=== PATIENT | female | born 2000 | race Caucasian/White ===

== ENCOUNTER → 2019-08-31 | Outpatient (CLI) | payer BC | END | disposition home or self-care (01) | LOC: LABWHC1 13:05 | PROVIDERS: ATTEND Family Medicine | DX: Z11.59 Encounter for screening for other viral diseases (principal) ==

== ENCOUNTER 2020-12-05 16:33 | Emergency (ER) | payer BC ==
[2020-12-05 16:36] VITALS: BP 121/84; PULSE 89; TEMP 98.3
[2020-12-05 16:50] VITALS: RESP 22
--- NOTE | 2020-12-05 17:44 | ED ---
URI HPI - General Chief Complaint: Upper Respiratory Infection Stated Complaint: 16WksPreg/MIRTA/ENT Time Seen by Provider: 12/05/20 17:02 Source: patient Mode of arrival: ambulatory Limitations: no limitations - History of Present Illness Initial Comments: Patient is a 20-year-old female, currently 16 weeks , presenting to the emergency Department with complaints of a cough, sinus congestion and sore throat over the past 3-4 days. She states that her nasal drainage and sputum has changed to a green color over the past 24 hours and she is concerned for possible infection. She did go to urgent care yesterday, they tested her for Covid which was negative. She states it and offer any sort of medication. She does have an inhaler at home that she has been trying, minimal improvement in her symptoms. Patient denies any fevers, no chest pain or shortness of breath, no abdominal pain, no vaginal bleeding. Her AUTO CARRIER DRIVER is Dr. Simon. This pattern as he has been uncomplicated thus far. Patient has no further complaints. Her vital signs are stable upon arrival. - Related Data Home Medications Medication Instructions Recorded Confirmed Methylphenidate HCl [Concerta] 18 mg PO 12/20/13 12/20/13 Previous Rx's Medication Instructions Recorded Azithromycin [Zithromax Z-pack (6 0 mg PO DIRECTED #6 tab 12/05/20 tabs)] Allergies Allergy/AdvReac Type Severity Reaction Status Date / Time amoxicillin Allergy Rash/Hives Verified 12/05/20 16:37 codeine Allergy Unknown Verified 12/05/20 16:37 erythromycin base Allergy Abdominal Verified 12/05/20 16:37 [Erythromycin Base] Pain Penicillins Allergy Rash/Hives Verified 12/05/20 16:37 Review of Systems ROS Statement: Those systems with pertinent positive or pertinent negative responses have been documented in the HPI. ROS Other: All systems not noted in ROS Statement are negative. Past Medical History Past Medical History: Asthma History of Any Multi-Drug Resistant Organisms: None Reported Past Surgical History: Tonsillectomy Past Psychological History: No Psychological Hx Reported Smoking Status: Current every day smoker, Vaper Past Alcohol Use History: None Reported Past Drug Use History: None Reported General Exam - General Exam Comments Initial Comments: GENERAL: Patient is well-developed and well-nourished. Patient is nontoxic and in no acute distress. HEAD: Atraumatic, normocephalic. EYES: Pupils equal round and reactive to light, extraocular movements intact, sclera anicteric, conjunctiva are normal. Eyelids were unremarkable. ENT: TMs normal, nares patent, oropharynx clear without exudates. Moist mucous membranes. NECK: Normal range of motion, supple without lymphadenopathy or JVD. LUNGS: Unlabored respirations. Breath sounds clear to auscultation bilaterally and equal. No wheezes rales or rhonchi. HEART: Regular rate and rhythm without murmurs, rubs or gallops. ABDOMEN: Soft, nontender, normoactive bowel sounds. No guarding, no rebound. No masses appreciated. : Deferred MUSCULOSKELETAL: Normal extremities with adequate strength and normal range of motion, no pitting or edema. No clubbing or cyanosis. NEUROLOGICAL: Patient is alert and oriented x 3. SKIN: Warm, Dry, normal turgor, no rashes or lesions noted. Limitations: no limitations Course Vital Signs 12/05/20 12/05/20 16:33 16:47 Temperature 98.3 F Pulse Rate 89 Respiratory 20 22 Rate Blood Pressure 121/84 O2 Sat by Pulse 97 Oximetry Medical Decision Making - Medical Decision Making Patient is a 20-year-old female, currently 16 weeks , presenting for cough, congestion over the past 3-4 days. Covid test yesterday at urgent care was negative. She's had no fevers, no abdominal pain, no vaginal bleeding. Her AUTO CARRIER DRIVER is Dr. Niels langford, so has been uncomplicated thus far. Her vital signs are completely normal today. Chest x-ray shows no acute process. I discussed with patient this is most likely viral however for symptoms or worsening we can start her on azithromycin which is safe during . I also recommended Robitussin cough for her symptoms. She can continue with her i nhaler as well. She can follow up with her AUTO CARRIER DRIVER. She is agreeable to this plan of care and is stable for discharge. Return parameters were discussed with her and she verbalized understanding. Case discussed with Dr. Catherine. Disposition Clinical Impression: Upper respiratory tract infection, Pharyngitis Disposition: HOME SELF-CARE Condition: Stable Instructions (If sedation given, give patient instructions): Upper Respiratory Infection (ED) Additional Instructions: Please return to the Emergency Department if symptoms worsen or any other concerns. Take antibiotic as prescribed. May take Robitussin cough and congestion for your symptoms. Continue with inhaler. May also take Tylenol. Please follow-up with your AUTO CARRIER DRIVER. Prescriptions: Azithromycin [Zithromax Z-pack (6 tabs)] 0 mg PO DIRECTED #6 tab Is patient prescribed a controlled substance at d/c from ED?: No Referrals: Gonzalo Douglas DO [Primary Care Provider] - 1-2 days Jaqueline Simon MD [STAFF PHYSICIAN] - 1-2 days Time of Disposition: 18:23
--- NOTE | 2020-12-05 18:14 | XR ---
EXAMINATION TYPE: XR chest 2V DATE OF EXAM: 12/05/2020 COMPARISON: Single view HISTORY: Cough TECHNIQUE: 2 views FINDINGS: Heart and mediastinum are normal. Lungs are clear. Diaphragm is normal. Bony thorax is inta ct. IMPRESSION: Normal chest.
== END 2020-12-05 18:44 | disposition home or self-care (01) ==
LOC: EC 16:33
DX: O99.512 Diseases of the respiratory system complicating pregnancy, second trimester (principal); O99.332 Smoking (tobacco) complicating pregnancy, second trimester; J06.9 Acute upper respiratory infection, unspecified; J02.9 Acute pharyngitis, unspecified; F17.290 Nicotine dependence, other tobacco product, uncomplicated; Z3A.16 16 weeks gestation of pregnancy; Z88.0 Allergy status to penicillin; Z88.5 Allergy status to narcotic agent; Z88.1 Allergy status to other antibiotic agents
CPT/HCPCS: 71046; 99283

== ENCOUNTER 2021-03-13 19:25 | Outpatient (CLI) | payer BC ==
[2021-03-13 20:25] LABS: Appearance,Urine Clear (Clear); Bilirubin,Urine Negative (Negative); Blood,Urine Negative (Negative); Color,Urine Light Yellow; Glucose,Urine (UA) Negative (Negative); Ketones,Urine Negative (Negative); Leukocyte Esterase,Urine Negative (Negative); Nitrite,Urine Negative (Negative); Protein,Urine Negative (Negative); Specific Gravity,Urine 1.007 (1.001-1.035); Urobilinogen,Urine <2.0 mg/dL (<2.0)
[2021-03-14 00:31] VITALS: BP 105/59; PULSE 80; RESP 16; TEMP 98.6
--- NOTE | 2021-04-27 14:04 | P.MSEPDOC ---
Presenting Problems - Arrival Data Date of Arrival on Unit: 03/13/21 Time of Arrival on Unit: 19:25 Mode of Transport: Ambulatory - Complaint OB-Reason for Admission/Chief Complaint: Other Comment: Patient thought that her mucus membranes had ruptured around 1500 03/13/21. Medical History - Information : 1 Para: 0 Term: 0 : 0 Abortions: Spontaneous or Elective: 0 Number of Living Children: 0 - Gestational Age Gestational Age by NICOLÁS (wks/days): 30 Weeks and 2 Days - History Comment: Patient denies any complications. Review of Systems - Review of Systems Constitutional: No problems Breast: No problems ENT: No problems Cardiovascular: No problems Respiratory: No problems Gastrointestinal: No problems Genitourinary: No problems Musculoskeletal: No problems Neurological: No problems Skin: No problems Vital Signs - Temperature Temperature: 98.6 F Temperature Source: Oral - Pulse Pulse Oximetery Pulse Rate: 80 - Respirations Respiratory Rate: 16 O2 Sat by Pulse Oximetry: 98 - Blood Pressure Right Arm Blood Pressure: 105/59 Blood Pressure Mean: 74 Blood Pressure Source: Automatic Cuff Medical Screen Scoring - Cervical Exam Dilation (cm): 0 Membranes: Intact - Uterine Contractions Intensity: Absent - Assessment - Baby A Baseline FHR: 130 Heart Rate - NICHD Category: Category I (Normal) NST: Reactive Physician Notification - Physician Notified Physician Notified Date: 03/14/21 Physician Notified Time: 21:10 Physician: Alex Watkins Order Received: Yes - Notification Comment Comment: Cervical check patient, can not do an FFN swab patient has had sexual intercourse in the last 24 hours. Maternal Triage Index - Non-Urgent/Priority 4 Non-Urgent Priority 4: Yes Criteria Met for Priority 4: Patient states that she thinks she lost her mucus plug at 1500 03/13/2021 Disposition - Disposition OB Disposition: Physician follow up in office, Discharge to home Discharge Date: 03/13/21 Discharge Time: 22:30 I agree with the RN Medical Screening Exam: Yes Physician's MSE Comment: I have neither seen nor examined the patient. Case reviewed; plan agreed upon as documented in EMR&OBIX.: Yes Diagnosis: RELATED CONDITIONS, UNSPECIFIED, THIRD TRIMESTER
== END 2021-03-13 22:24 | disposition home or self-care (01) ==
LOC: FBPOP 19:25
PROVIDERS: ATTEND Obstetrics & Gynecology
DX: O26.93 Pregnancy related conditions, unspecified, third trimester (principal); Z3A.30 30 weeks gestation of pregnancy
CPT/HCPCS: 59025; 81003; 99213

== ENCOUNTER 2021-04-21 19:48 | Inpatient (IN) | payer BC ==
[2021-04-21] MEDS ORDERED: TERBUTALINE 1 MG/ML VIAL SQ PRN (20:49)
[2021-04-21] MEDS ORDERED: METHYLERGONOVINE 0.2 MG/ML 1 ML AMP IM PRN (20:49)
[2021-04-21] MEDS ORDERED: LIDOCAINE 1% (PF) 10 MG/ML (30 ML SDV) SQ PRN (20:49)
[2021-04-21] MEDS ORDERED: CARBOPROST TROMETHAMINE 250 MCG/ML 1 ML AMP IM PRN (20:49)
[2021-04-21] MEDS ORDERED: OXYTOCIN 10 UNIT/ML 1 ML VIAL IM PRN (20:49)
[2021-04-21] MEDS: LACTATED RINGERS 1,000 ML IV SCH (20:52)
[2021-04-21] MEDS ORDERED: CLINDAMYCIN 900 MG in DEXTROSE 5% IN WATER 50 ML IVPB STA ×2 (21:04)
[2021-04-21] MEDS: OXYTOCIN 30 UNITS/500 ML NS 30 UNIT in SALINE 1 500ML.BAG IV SCH (21:22)
--- NOTE | 2021-04-21 21:29 | P.HPOB ---
History of Present Illness H&P Date: 04/21/21 Chief Complaint: Abdominal pain and leaking fluids This is a 21 year old 1 para 0 woman with an estimated due date of 05/21/2021 based on first trimester ultrasound. She presents at 35 5/7 weeks gestation complaining of 2 days of leakage of fluids and increasing abdominal and back pain. She was seen for routine exam 2 or 3 days ago at which time she reports she had a cervical check. She has been having leakage of fluids and increasing pain since that time. On initial evaluation in labor and delivery triage rupture of membranes is confirmed by positive amnio sure testing. She is also noted to be 5 cm dilated. She reports her pain is mainly in her back but does radiate around to the abdomen. This approximately every 3- 4 minutes. has been essentially uncomplicated. She has a history of anxiety, depression and asthma. History of vaping. No recent trauma or illness. Laboratory data: Blood type O+, antibody screen negative, rubella immune, VDRL nonreactive, hepatitis B surface antigen negative, HIV negative, gonorrhea and clinic cultures negative, glucose tolerance testing within normal limits. Group B strep unknown. Review of Systems All systems: negative Past Medical History Past Medical History: Asthma History of Any Multi-Drug Resistant Organisms: None Reported Past Surgical History: Tonsillectomy Smoking Status: Current every day smoker Medications and Allergies Home Medications Medication Instructions Recorded Confirmed Type Albuterol Inhaler [Ventolin Hfa 1 inhalation PO Q4H PRN 02/26/21 03/13/21 History Inhaler] Pnv,Calcium 72/Iron/Folic Acid 1 tab PO DAILY 02/26/21 02/26/21 History [ Plus Tablet] Sertraline HCl [Zoloft] 03/13/21 History Allergies Allergy/AdvReac Type Severity Reaction Status Date / Time amoxicillin Allergy Unknown Verified 04/21/21 20:48 azithromycin Allergy Unknown Verified 04/21/21 20:48 codeine Allergy Unknown Verified 04/21/21 20:48 erythromycin base Allergy Unknown Verified 04/21/21 20:48 [Erythromycin Base] Exam Intake and Output 04/21/21 04/21/21 04/21/21 06:59 14:59 22:59 Other: Weight 62.596 kg Targeted physical exam is performed. This is a visibly gravid, comfortable appearing female. The abdomen is gravid with fundal height consistent with gestational age. She does have palpable moderate contractions approx imately every 3 minutes. On pelvic examination she is 5 cm dilated, 80% effaced vertex in the -2 station. There is a bulging fore bag. This was ruptured and grossly bloody fluid is noted. heart tones are category 1. Assessment and Plan (1) with 35 to 36 completed weeks gestation Current Visit: Yes Status: Acute Code(s): ZPK9366 - SNOMED Code(s): 368376039 (2) Prolonged rupture of membranes Current Visit: Yes Status: Acute Code(s): O42.90 - YUKI ROM, 7TH0 BETW RUPT & ONST LABR, UNSP WEEKS OF GEST SNOMED Code(s): 78896421 (3) Spontaneous onset of labor Current Visit: Yes Status: Acute Code(s): IWN8271 - SNOMED Code(s): 29925131 Plan: This is a 21-year-old 1 para 0 woman who presents at 35-5/7 weeks gestation with prolonged rupture of membranes approximately 36 hours. She is afebrile. CBC is pending. status is reassuring by external monitoring. Amniotic fluid at this time is grossly bloody. Plan is for the initiation of antibiotics as well as Pitocin augmentation of labor. Nursery is aware of the 35 week gestation. Plan was discussed with the patient and father of the baby and all questions are answered. She may have an epidural anesthetic or analgesia upon request in active labor.
[2021-04-21 21:30] LABS: Basophils % (A) 0 %; Eosinophils # (A) 0.1 k/uL (0-0.7); Eosinophils % (A) 1 %; HCT 33.5 % (34.0-46.0); HGB 11.4 gm/dL (11.4-16.0); Lymphocytes # (A) 1.4 k/uL (1.0-4.8); Lymphocytes % (A) 14 %; MCH 31.5 pg (25.0-35.0); MCV 92.8 fL (80.0-100.0); Mean Platelet Volume 8.5; Monocytes # (A) 0.5 k/uL (0-1.0); Monocytes % (A) 5 %; Neutrophils % (A) 79 %; Platelet Count 182 k/uL (150-450); RBC 3.61 m/uL (3.80-5.40); RDW 13.2 % (11.5-15.5); WBC 10.1 k/uL (3.8-10.6)
[2021-04-21] MEDS ORDERED: ROPIVACAINE 100 MG, fentaNYL (PF). 200 MCG in SODIUM CHLORIDE 0.9% 76 ML EPIDURAL ONE (22:43)
[2021-04-22] MEDS ORDERED: diphenhydrAMINE 25 MG CAP PO PRN (04:14)
[2021-04-22] MEDS ORDERED: ZOLPIDEM 5 MG TAB PO PRN (04:14)
[2021-04-22] MEDS ORDERED: HYDROCORTISONE 2.5% RECTAL CREAM 30 GM TUBE RECTAL PRN (04:14)
[2021-04-22] MEDS ORDERED: diphenhydrAMINE 50 MG/ML 1 ML VIAL IVP PRN ×2 (04:14)
[2021-04-22] MEDS ORDERED: SIMETHICONE 80 MG CHEWABLE PO PRN (04:14)
[2021-04-22] MEDS ORDERED: diphenhydrAMINE 50 MG CAP PO PRN (04:14)
[2021-04-22] MEDS ORDERED: diphenhydrAMINE ELIXIR 25 MG/10 ML CUP PO PRN (04:14)
[2021-04-22] MEDS ORDERED: LANOLIN CREAM 5 GM TUBE TOPICAL PRN (04:14)
[2021-04-22] MEDS ORDERED: BENZOCAINE/MENTHOL SPRAY 1 GM/SPRAY AEROSOL TOPICAL PRN (04:14)
--- NOTE | 2021-04-22 04:14 | P.PROBDLV ---
Vaginal Delivery Note - . Vaginal Delivery Note: Findings: Male infant in the left occiput transverse position with Apgars of 8 at 1 minute and 9 at 5 minutes weighing 5 lbs. 15 oz., 2705 g. Second-degree perineal laceration. Intact, three-vessel cord placenta. EBL approximately 200 mL's. Delivery summary: This is a 21-year-old 1 para 0 woman who presented at 35-5/7 weeks gestation with prolonged rupture of membranes. She reports rupture possibly greater than 36 hours. On admission she was 5 cm dilated and irregularly but painfully mari. A fore bag was ruptured and bloody fluid was noted. Pitocin augmentation was initiated and the patient did receive an epidural anesthetic. She reached complete cervical dilation and commenced pushing with strong maternal urge. Assessment at that time was that the was likely in the occiput posterior position. Patient had an approximately 2-1 /2 hour second stage of labor. heart rate baseline was in the low 100s with accelerations and good variability throughout. The patient eventually pushed to and was repositioned in the modified Satish position. The perineum was infused with lidocaine. The patient pushed to deliver the head from the left occiput transverse position. She was placed incomplete Satish position to deliver the shoulder. I do not believe there is a shoulder dystocia however the patient was extremely uncomfortable and unable to push effectively once the head was delivered. The left shoulder did deliver with repositioning very rapidly. The rest the was delivered onto the field. The nose and mouth were bulb suctioned and the infant was placed on the maternal abdomen. Eventually cord was clamped and cut. Apgars 8 at 1 minute and 9 at 5 minutes. An intact, three-vessel cord placenta was delivered. The perineum was infused with lidocaine and a second-degree perineal laceration was repaired using 3-0 Vicryl suture. She had significant discomfort and was given 1 mg of Stadol during her repair. The vagina was inspected and a right labial laceration was noted but this was not actively bleeding. EBL was approximately 200 mL's. The patient received Pitocin following delivery of the placenta. All counts were correct. was taken to special care nursery for further evaluation secondary to gestational age
[2021-04-22] MEDS ORDERED: OXYTOCIN 30 UNITS/500 ML NS 30 UNIT in SALINE 1 500ML.BAG IV SCH (04:15)
[2021-04-22] MEDS ORDERED: BUTORPHANOL 1 MG/ML 1 ML VIAL IV PRN (04:35)
[2021-04-22] MEDS ORDERED: CLINDAMYCIN 900 MG in DEXTROSE 5% IN WATER 50 ML IVPB SCH ×2 (06:00)
[2021-04-22] MEDS: IBUPROFEN 600 MG TAB PO PRN ×2 (06:48→14:09)
[2021-04-22] MEDS: OXYTOCIN 30 UNITS/500 ML NS 30 UNIT in SALINE 1 500ML.BAG IV SCH (06:48)
[2021-04-22] MEDS: LACTATED RINGERS 1,000 ML IV SCH ×2 (07:18→16:55)
[2021-04-22] MEDS: SENNOSIDES-DOCUSATE SODIUM 1 EACH TAB PO SCH ×2 (09:49→20:01)
[2021-04-23] MEDS: IBUPROFEN 600 MG TAB PO PRN ×2 (07:47→16:47)
[2021-04-23] MEDS: SENNOSIDES-DOCUSATE SODIUM 1 EACH TAB PO SCH ×2 (07:48→19:35)
--- NOTE | 2021-04-23 07:56 | P.PN ---
Subjective Progress Note Date: 04/23/21 Principal diagnosis: Doing well day #1 Slept well. Minimal pain. Minimal lochia rubra, no complaints. Objective - Vital Signs Vital signs: Vital Signs Temp 97.7 F 04/23/21 07:51 Pulse 73 04/23/21 07:51 Resp 16 04/23/21 07:51 BP 132/73 04/23/21 07:51 Pulse Ox 98 04/23/21 00:15 Intake & Output 04/22/21 04/23/21 04/23/21 18:59 06:59 18:59 Other: # Voids 2 2 - Constitutional General appearance: Present: average body habitus - EENT Eyes: Present: PERRLA ENT: Present: hearing grossly normal - Neck Neck: Present: normal ROM - Respiratory Respiratory: bilateral: CTA - Cardiovascular Rhythm: regular - Gastrointestinal Gastrointestinal Comment(s): Fundus firm, symmetric, midline, 18 week size. General gastrointestinal: Present: normal bowel sounds - Integumentary Integumentary: Present: normal - Neurologic Neurologic: Present: CNII-XII intact - Musculoskeletal Musculoskeletal: Present: gait normal, strength equal bilaterally - Psychiatric Psychiatric: Present: A&O x's 3, appropriate affect, intact judgment & insight - Labs CBC & Chem 7: 04/21/21 21:00 Assessment and Plan Assessment: Doing well day #1 Plan: Continue care. Likely discharge home tomorrow. Ferrous sulfate once daily Time with Patient: Less than 30
[2021-04-23 09:24] LABS: Basophils % (A) 0 %; Eosinophils # (A) 0.2 k/uL (0-0.7); Eosinophils % (A) 2 %; HCT 26.3 % (34.0-46.0); Lymphocytes % (A) 20 %; MCH 32.7 pg (25.0-35.0); MCV 93.4 fL (80.0-100.0); Mean Platelet Volume 8.6; Monocytes # (A) 0.4 k/uL (0-1.0); Monocytes % (A) 4 %; Neutrophils # (A) 7.3 k/uL (1.3-7.7); Neutrophils % (A) 74 %; Platelet Count 126 k/uL (150-450); RBC 2.82 m/uL (3.80-5.40); RDW 12.8 % (11.5-15.5)
[2021-04-23 09:29] LABS: HGB 9.2 gm/dL (11.4-16.0)
[2021-04-23] MEDS ORDERED: FERROUS SULFATE 325 MG TAB PO SCH (12:30)
[2021-04-23] MEDS: ACETAMINOPHEN TAB 325 MG TAB PO PRN ×2 (12:38→23:59)
[2021-04-24 07:31] VITALS: PULSE 82; RESP 17; TEMP 98.7
[2021-04-24] MEDS: SENNOSIDES-DOCUSATE SODIUM 1 EACH TAB PO SCH (07:55)
--- NOTE | 2021-04-24 08:34 | P.DS ---
Providers Date of admission: 04/21/21 20:21 Expected date of discharge: 04/24/21 Attending physician: Jaqueline Simon Primary care physician: Stated None Hospital Course: This is a 21-year-old white female 1 para 0 EDC 05/21/2021 at 35-6/7 weeks' gestation who presented from home with spontaneous amniorrhexis. Fetus is been active throughout the . Blood type O positive, group B strep cultures unknown, please see dictated history and physical for details. Patient went on to deliver spontaneously a liveborn male with scores of 8 and 9 at one and 5 minutes respectively. Infant weight 04[birth year]30[birth year]2004 grams, or 5 pounds 15.4 ounces. There was an estimated blood loss recorded of 200 mL, a second degree perineal laceration easily repaired, please see dictated delivery note for details. This morning the patient is doing well. She is voiding, ambulating, passing flatus without difficulty. Vital signs are stable and she is afebrile. Breasts are not engorged, fundus is firm and in the midline, symmetric 18 week size. Perineal body is slightly edematous, otherwise clean and dry. Patient is judged to be in very good condition for discharge home. She is reminded no intercourse, tampons or douching. She will use [id number] Advil or Aleve, or Motrin as needed for pain. She will call with any fevers shakes or chills, foul smelling or copious lochia, with the passage of large blood clots, with any pain not alleviated by [id number] products, or indeed with any concerns. We will discuss contraceptive options in the office. [place] is still in the nursery, progressing with feeding, circumcision to be performed prior to discharge home. Assessment: Doing well second day Patient Condition at Discharge: Good Plan - Discharge Summary Discharge Rx Participant: No New Discharge Prescriptions: No Action Pnv,Calcium 72/Iron/Folic Acid [ Plus Tablet] 1 tab PO DAILY Albuterol Inhaler [Ventolin Hfa Inhaler] 1 inhalation PO Q4H PRN PRN Reason: Shortness Of Breath Sertraline HCl [Zoloft] 50 mg PO DAILY Discharge Medication List Albuterol Inhaler [Ventolin Hfa Inhaler] 1 inhalation PO Q4H PRN 02/26/21 [History] Pnv,Calcium 72/Iron/Folic Acid [ Plus Tablet] 1 tab PO DAILY 02/26/21 [History] Sertraline HCl [Zoloft] 50 mg PO DAILY 03/13/21 [History] Follow up Appointment(s)/Referral(s): Jaqueline Simon MD [STAFF PHYSICIAN] - 6 Weeks Discharge Disposition: HOME SELF-CARE
[2021-04-24 08:48] VITALS: BP 141/78
[2021-04-24] MEDS: IBUPROFEN 600 MG TAB PO PRN (09:36)
== END 2021-04-24 12:00 | disposition home or self-care (01) | DRG 807 ==
LOC: FBPOP 19:48 → 4FBP 20:21
PROVIDERS: ADMIT Obstetrics & Gynecology; ATTEND Obstetrics & Gynecology
PROC: 10E0XZZ Delivery of Products of Conception, External Approach (ICD-10-PCS; principal; 2021-04-22)
PROC: 0KQM0ZZ Repair Perineum Muscle, Open Approach (ICD-10-PCS; 2021-04-22)
DX: O42.113 Preterm premature rupture of membranes, onset of labor more than 24 hours following rupture, third trimester (principal); Z37.0 Single live birth; J45.909 Unspecified asthma, uncomplicated; F17.210 Nicotine dependence, cigarettes, uncomplicated; O70.1 Second degree perineal laceration during delivery; O99.52 Diseases of the respiratory system complicating childbirth; O99.334 Smoking (tobacco) complicating childbirth; O99.344 Other mental disorders complicating childbirth; F41.9 Anxiety disorder, unspecified; F32.A Depression, unspecified; Z3A.35 35 weeks gestation of pregnancy; Z88.1 Allergy status to other antibiotic agents; Z88.5 Allergy status to narcotic agent
CPT/HCPCS: 59025; 84112; 85025; 86850; 86900; 86901; 88307; 99213